=== PATIENT | male | born 1990 | race Caucasian/White ===

== ENCOUNTER 2025-02-21 06:21 | Day surgery (SDC) | payer BC, SELFPAY | END 2025-02-21 11:18 | disposition home or self-care (01) | LOC: GI 06:21 | PROVIDERS: ATTENDING PHYSICIAN Surgery | DX: D18.1 Lymphangioma, any site (principal); K64.9 Unspecified hemorrhoids; A63.0 Anogenital (venereal) warts | CPT/HCPCS: 45380; 88305 ==